=== PATIENT | male | born 1980 | race Caucasian/White ===

== ENCOUNTER 2022-08-07 18:24 | Emergency (ER) | payer MEDICARE, OTHER ==
[2022-08-07 21:53] LABS: ACETAMINOPHEN <2.0 ug/mL; BLOOD UREA NITROGEN,BUN 23 mg/dL (7.0-18.0); CARBON DIOXIDE,CO2 28.8 mmol/L (21.0-32.0); CHLORIDE,CL 102 mmol/L (98-107); GLUCOSE RANDOM 110 mg/dL (74-106); POTASSIUM,K 4.2 mmol/L (3.5-5.1); SODIUM,NA 142 mmol/L (136-148)
[2022-08-07 22:02] LABS: ESTIMATED GFR 78 mL/min (>60)
== END 2022-08-08 12:15 | disposition home or self-care (01) ==
LOC: MW.ED 18:24
DX: F32.A Depression, unspecified (principal); Z88.8 Allergy status to other drugs, medicaments and biological substances; Z91.041 Radiographic dye allergy status; Z88.1 Allergy status to other antibiotic agents; Z79.82 Long term (current) use of aspirin; Z79.899 Other long term (current) drug therapy; Z20.822 Contact with and (suspected) exposure to COVID-19
CPT/HCPCS: 36415; 80053; 80143; 80179; 80305; 80307; 81001; 83735; 84443; 85025; 93005; 99285; U0002; 93010; 99284

== ENCOUNTER 2022-08-08 15:12 | Observation (INO) | payer MEDICARE, OTHER ==
[2022-08-08] MEDS ORDERED: Propranolol 20 MG Tab PO SCH (23:45)
[2022-08-09] MEDS ORDERED: Metoprolol Tartrate 50 MG Tab PO SCH ×2 (09:00→21:00)
[2022-08-09] MEDS ORDERED: Metoprolol Succinate 50 MG Tab.ER PO SCH (09:00)
[2022-08-09] MEDS ORDERED: Escitalopram 10 MG Tab PO SCH (09:00)
[2022-08-09] MEDS ORDERED: Aspirin 81 MG Tab.EC PO SCH (09:00)
[2022-08-09] MEDS ORDERED: amLODIPine 5 MG Tab PO SCH (09:00)
[2022-08-09] MEDS ORDERED: Propranolol 20 MG Tab PO PRN (14:00)
[2022-08-09] MEDS ORDERED: Mycophenolate Mofetil 250 MG Cap PO SCH ×2 (14:00→21:00)
[2022-08-09] MEDS ORDERED: Tacrolimus 1 MG Cap PO SCH ×2 (14:00)
[2022-08-09] MEDS ORDERED: Cephalexin 500 MG Cap PO SCH (14:00)
[2022-08-09] MEDS ORDERED: predniSONE 5 MG Tab PO SCH ×2 (14:00)
[2022-08-09] MEDS ORDERED: hydrOXYzine HCl 25 MG Tab PO PRN (14:00)
[2022-08-09] MEDS: Cephalexin 500 MG Cap PO SCH ×2 (14:24→21:17)
[2022-08-09] MEDS ORDERED: LORazepam 1 MG Tab PO PRN (17:31)
[2022-08-09] MEDS ORDERED: Polyethylene Glycol 3350 Powder 17 GM Packet PO PRN (17:32)
[2022-08-09] MEDS ORDERED: fluvoxaMINE 50 MG Tab PO STA (20:36)
[2022-08-09] MEDS ORDERED: Cyclobenzaprine 10 MG Tab PO PRN ×2 (21:00)
[2022-08-09] MEDS ORDERED: LORATADINE 10 MG PO SCH (21:00)
[2022-08-09] MEDS ORDERED: atorvaSTATin 20 MG Tab PO SCH (21:00)
[2022-08-09] MEDS ORDERED: traMADol 50 MG Tab PO PRN ×2 (21:00)
[2022-08-09] MEDS ORDERED: Loratadine 10 MG Tab PO SCH (21:00)
[2022-08-10] MEDS ORDERED: ARIPIPRAZOLE 5 MG PO SCH (09:00)
[2022-08-10] MEDS ORDERED: ARIPiprazole 10 MG Tab PO SCH (21:00)
== END 2022-08-09 21:10 | disposition home or self-care (01) ==
LOC: MW.ED 15:12 → MW.MS 20:33
PROVIDERS: ADMIT Internal Medicine; ATTEND Internal Medicine
DX: F32.A Depression, unspecified (principal); I10 Essential (primary) hypertension; F42.9 Obsessive-compulsive disorder, unspecified; Z79.82 Long term (current) use of aspirin; Z79.899 Other long term (current) drug therapy; F43.10 Post-traumatic stress disorder, unspecified; F41.9 Anxiety disorder, unspecified; R45.851 Suicidal ideations
CPT/HCPCS: 99284; A9270; G0378; 99283

== ENCOUNTER 2022-08-15 15:04 | Emergency (ER) | payer MEDICARE, OTHER | END 2022-08-15 16:34 | disposition home or self-care (01) | LOC: MW.ED 15:04 | DX: Z76.0 Encounter for issue of repeat prescription (principal); Z86.16 Personal history of COVID-19; Z91.041 Radiographic dye allergy status; Z88.8 Allergy status to other drugs, medicaments and biological substances; Z88.2 Allergy status to sulfonamides; Z88.1 Allergy status to other antibiotic agents; Z79.82 Long term (current) use of aspirin; Z79.899 Other long term (current) drug therapy | CPT/HCPCS: 99281 ==

== ENCOUNTER 2022-08-30 15:40 | Emergency (ER) | payer MEDICARE, OTHER | END 2022-08-30 16:27 | disposition home or self-care (01) | LOC: MW.ED 15:40 | DX: Z76.0 Encounter for issue of repeat prescription (principal); Z86.16 Personal history of COVID-19; Z91.041 Radiographic dye allergy status; Z88.1 Allergy status to other antibiotic agents; Z79.82 Long term (current) use of aspirin | CPT/HCPCS: 99281 ==

== ENCOUNTER 2022-08-31 16:44 | Emergency (ER) | payer MEDICARE, OTHER ==
[2022-08-31 17:57] LABS: BASOPHILS PERCENT AUTO 0.1 % (0.0-1.5); EOSINOPHILS ABSOLUTE AUTO 0.1 K/uL (0.0-0.7); EOSINOPHILS PERCENT AUTO 0.9 % (0.0-7.0); HEMATOCRIT 48.2 % (38.0-50.0); HEMOGLOBIN 16.4 g/dL (13.0-17.0); LYMPHOCYTES ABSOLUTE AUTO 1.1 K/uL (0.6-2.4); LYMPHOCYTES PERCENT AUTO 13.5 % (16.0-40.0); MEAN CORPUSCULAR HEMOGLOBIN 30.3 pg (27.0-32.0); MEAN CORPUSCULAR VOLUME 88.9 fL (80.0-98.0); MONOCYTES ABSOLUTE AUTO 0.7 K/uL (0.0-0.8); MONOCYTES PERCENT AUTO 8.9 % (0.0-15.0); NEUTROPHILS ABSOLUTE AUTO 6.3 K/uL (1.4-5.7); NEUTROPHILS PERCENT AUTO 76.6 % (48.0-80.0); NRBC ABSOLUTE 0 K/uL; PLATELET COUNT,PLT 206 K/uL (150-400); RED BLOOD CELL COUNT 5.42 M/uL (4.50-5.90); WHITE BLOOD CELL COUNT,WBC 8.17 K/uL (4.0-11.0)
[2022-08-31 18:29] LABS: A/G RATIO 0.9 (0.9-1.6); ALBUMIN 3.6 g/dL (3.4-5.0); BILIRUBIN TOTAL 0.7 mg/dL (0.2-1.0); CALCIUM 9.5 mg/dL (8.5-10.1); CARBON DIOXIDE,CO2 26.5 mmol/L (21.0-32.0); CREATININE 1.2 mg/dL (0.8-1.3); EST CRCL DRUG DOSING (CG) 67.83 mL/min; POTASSIUM,K 3.9 mmol/L (3.5-5.1); PROTEIN TOTAL,TP 7.5 g/dL (6.4-8.2)
[2022-08-31] MEDS ORDERED: Tacrolimus 1 MG Cap PO STA (18:41)
== END 2022-08-31 19:15 | disposition home or self-care (01) ==
LOC: MW.ED 16:44
DX: Z76.0 Encounter for issue of repeat prescription (principal); Z86.16 Personal history of COVID-19; Z91.041 Radiographic dye allergy status; Z88.8 Allergy status to other drugs, medicaments and biological substances; Z88.2 Allergy status to sulfonamides; Z88.1 Allergy status to other antibiotic agents; Z79.82 Long term (current) use of aspirin; Z79.899 Other long term (current) drug therapy
CPT/HCPCS: 36415; 80053; 85025; 99283

== ENCOUNTER 2022-09-12 18:51 | Emergency (ER) | payer MEDICARE, OTHER | END 2022-09-12 19:54 | disposition home or self-care (01) | LOC: MW.ED 18:51 | DX: F32.A Depression, unspecified (principal); F41.9 Anxiety disorder, unspecified; Z91.041 Radiographic dye allergy status; Z88.1 Allergy status to other antibiotic agents; Z88.8 Allergy status to other drugs, medicaments and biological substances; Z79.82 Long term (current) use of aspirin; Z79.899 Other long term (current) drug therapy | CPT/HCPCS: 99284 ==